=== PATIENT | male | born 1985 | race African-American/Black ===

== ENCOUNTER 2018-11-08 21:55 | Emergency (ER) | payer OTHER ==
[~2018-11-08] VITALS: Ht 182.9 cm; Wt 102.1 kg
--- NOTE | 2018-11-08 22:35 | RAD ---
PQRS Compliance statement: One or more of the following individualized dose reduction techniques were utilized for this examination: 1. Automated exposure control. 2. Adjustment of the mA and/or kV according to patient size. 3. Use of iterative reconstruction technique. Indication:Fall. TECHNIQUE: CT head without IV contrast COMPARISON: None FINDINGS: No pathologic extra-axial or intra-axial fluid collection. No acute intracranial bleed. The ventricles and basal cisterns are within normal limits. Mild left frontal scalp hematoma. Orbits are within normal limits. Right anterolateral frontal deep scalp laceration. No acute calvarial fractures. The paranasal sinuses and mastoid air cells are clear. IMPRESSION: 1. No acute intracranial bleed or calvarial fracture. 2. Right anterolateral frontal deep scalp laceration and small left anterior frontal scalp hematoma. Indication:Fall. TECHNIQUE: CT of the cervical spine without IV contrast with multiplanar reformats. COMPARISON:None FINDINGS: Cervical spine is in normal anatomic alignment. Atlantoaxial joint interval is preserved. No compression deformity. Facet joints are in normal anatomic alignment. No acute fractures. Noncontrast appearance of the neck soft tissue is within normal limits. Visualized lung apices are clear. IMPRESSION: No acute fractures. Electronically signed by: Tesfaye Acevedo DO (11/08/2018 10:32 PM) [facility]
[2018-11-08 22:51] VITALS: BP 142/83
--- NOTE | 2018-11-08 22:54 | PHYS DOC ---
Past Medical History Past Medical History: No Pertinent History Adult General Chief Complaint Chief Complaint: MECHANICAL FALL HPI HPI Patient is a 33 year old male who brought in by EMS because of a fall and head injury. Patient is incarcerated in because of a fall from bunk bed about 5 feet high and loss of consciousness for possibly about 5 minutes with laceration and contusion of his scalp without other injuries. Patient states he does not remember his fall and denies any pain. Patient is up-to-date with tetanus imm unization. Patient agreed to have CT of the head and neck and laceration repair but does not want any more tests. Review of Systems Review of Systems Constitutional: Denies fever or chills [] Eyes: Denies change in visual acuity, redness, or eye pain [] HENT: Denies nasal congestion or sore throat [] Respiratory: Denies cough or shortness of breath [] Cardiovascular: No additional information not addressed in HPI [] GI: Denies abdominal pain, nausea, vomiting, bloody stools or diarrhea [] : Denies dysuria or hematuria [] Musculoskeletal: Denies back pain or joint pain [] Integument: Denies rash or skin lesions [] Neurologic: Denies headache, focal weakness or sensory changes [] Endocrine: Denies polyuria or polydipsia [] All other systems were reviewed and found to be within normal limits, except as documented in this note. Physical Exam Physical Exam Constitutional: Well developed, well nourished, no acute distress, non-toxic appearance. [] HENT: Normocephalic, 3 cm linear laceration of right frontal scalp and forehead with mild bleeding, 3 cm forehead contusion, bilateral external ears normal, oropharynx moist. Eyes: PERRLA, EOMI, conjunctiva normal, no discharge. [] Neck: Immobilized with c-collar by EMS Cardiovascular:Heart rate regular rhythm, no murmur [] Lungs & Thorax: Bilateral breath sounds clear to auscultation [] Abdomen: Bowel sounds normal, soft, no tenderness, no masses, no pulsatile masses. [] Skin: Warm, dry, no erythema, no rash. [] Back: No tenderness, no CVA tenderness. [] Extremities: No tenderness, no cyanosis, no clubbing, ROM intact, no edema. [] Neurologic: Alert and oriented X 3, normal motor function, normal sensory function, no focal deficits noted. [] Psychologic: Affect normal, judgement normal, mood normal. [] Current Patient Data Vital Signs Vital Signs Date Time Temp Pulse Resp B/P (MAP) Pulse Ox O2 Delivery O2 Flow Rate FiO2 11/08/18 21:55 98.6 105 16 152/79 (103) 97 Room Air 98.6 EKG EKG [] Radiology/Procedures Radiology/Procedures [facility] [address] [place] [address] IMAGING REPORT Signed PATIENT: YASH GARIBAY ACCOUNT: [id number] : 1985 LOCATION: ER AGE: 33 SEX: M EXAM STATUS: PRE ER ORD. PHYSICIAN: PAMELA RUIZ MD REASON: fall from height PROCEDURE: CT HEAD AND CERVICAL SPINE WO PQRS Compliance statement: One or more of the following individualized dose reduction techniques were utilized for this examination: 1. Automated exposure control. 2. Adjustment of the mA and/or kV according to patient size. 3. Use of iterative reconstruction technique. Indication:Fall. TECHNIQUE: CT head without IV contrast COMPARISON: None FINDINGS: No pathologic extra-axial or intra-axial fluid collection. No acute intracranial bleed. The ventricles and basal cisterns are within normal limits. Mild left frontal scalp hematoma. Orbits are within normal limits. Right anterolateral frontal deep scalp laceration. No acute calvarial fractures. The paranasal sinuses and mastoid air cells are clear. IMPRESSION: 1. No acute intracranial bleed or calvarial fracture. 2. Right anterolateral frontal deep scalp laceration and small left anterior frontal scalp hematoma. Indication:Fall. TECHNIQUE: CT of the cervical spine without IV contrast with multiplanar reformats. COMPARISON:None FINDINGS: Cervical spine is in normal anatomic alignment. Atlantoaxial joint interval is preserved. No compression deformity. Facet joints are in normal anatomic alignment. No acute fractures. Noncontrast appearance of the neck soft tissue is within normal limits. Visualized lung apices are clear. IMPRESSION: No acute fractures. Electronically signed by: Tesfaye Tinajero DO (11/08/2018 10:32 PM) [id number] DICTATED and SIGNED BY: TESFAYE TINAJERO DO DATE: 11/08/182231 Course & Med Decision Making Course & Med Decision Making Pertinent Imaging studies reviewed. (See chart for details) Evaluation of patient in ER showed 33-year-old incarcerated male patient with a fall from height and facial laceration of forehead contusion. CT head Was unremarkable and c-collar was removed. Laceration was repaired with Dermabond and Steri-Strip. Patient ambulated without problem. Patient was discharged to police custody. Patient did not want pain medication while he was in ER. Dragon Disclaimer Dragon Disclaimer This electronic medical record was generated, in whole or in part, using a voice recognition dictation system. Departure Departure Impression: Primary Impression: Concussion Additional Impressions: Head injury due to trauma Facial laceration Facial contusion Fall from height of greater than 3 feet Disposition: 01 HOME, SELF-CARE (To police custody at 2252) Condition: IMPROVED Patient Instructions: Concussion and Brain Injury, Facial or Scalp Contusion, Tissue Adhesive Wound Care Additional Instructions: Drink plenty of liquids Follow-up with your primary care physician in 3-5 days Return to ER if not getting better Take [id number] Tylenol or ibuprofen as needed for pain Thank you for visiting [facility]. We appreciate you trusting us with your care. If any additional problems come up don't hesitate to return to visit us. Please follow up with your primary care provider so they can plan additional care if needed and know about the problem that you had. If symptoms worsen come back to the Emergency Department. Any concerning symptoms that start such as chest pain, shortness of Air, weakness or numbness on one side of the body, running high fevers or any other concerning symptoms return to the ER. Laceration Repair Lac Repair Indication: Facial and forehead laceration Procedure: The patient was placed in the appropriate position and 3 cm linear laceration of right forehead and frontal area was repaired with Dermabond and Steri-Strip Total repaired wound length: 3 cm Other Items: None The patient tolerated the procedure well. Complications: None. Problem Qualifiers Primary Impression: Concussion Encounter type: subsequent encounter Loss of consciousness presence/duration: with LOC of 30 min or less Qualified Codes: S06.0X1D - Concussion with loss of consciousness of 30 minutes or less, subsequent encounter Additional Impressions: Head injury due to trauma Encounter type: initial encounter Qualified Codes: S09.90XA - Unspecified injury of head, initial encounter Facial laceration Encounter type: subsequent encounter Qualified Codes: S01.81XD - Laceration without foreign body of other part of head, subsequent encounter Facial contusion Encounter type: subsequent encounter Qualified Codes: S00.83XD - Contusion of other part of head, subsequent encounter PAMELA RUIZ MD Nov 08, 2018 22:54
== END 2018-11-08 23:00 | disposition home or self-care (01) ==
LOC: ER 21:55 → EEVIPCON 21:55 → ER 23:00
DX: S06.0X1A Concussion with loss of consciousness of 30 minutes or less, initial encounter (principal); S01.01XA Laceration without foreign body of scalp, initial encounter; S01.81XA Laceration without foreign body of other part of head, initial encounter; W17.89XA Other fall from one level to another, initial encounter; Y93.89 Activity, other specified; Y92.89 Other specified places as the place of occurrence of the external cause; Y99.8 Other external cause status
CPT/HCPCS: 12013; 70450; 72125; 99285

== ENCOUNTER 2019-12-10 12:00 | Emergency (ER) | payer OTHER ==
[~2019-12-10] VITALS: Ht 182.9 cm; Wt 102.1 kg
--- NOTE | 2019-12-10 12:07 | PHYS DOC ---
Past Medical History Past Medical History: No Pertinent History Additional Past Medical Histor: PTSD Past Surgical History: No Surgical History Smoking Status: Unknown if ever smoked Alcohol Use: None Drug Use: Other (K2) General Adult HPI: HPI: Patient is a 34 year old male who presents via EMS for altered mental status. [facility] Was found face down in his cell at 1037 this morning. Was immediately wheeled to medical bay in penitentiary where he was evaluated. Patient was given 1 mg Narcan without any relief. He was also given 5 mg of Ativan and an additional 2 mg of Ativan after witnessed seizure. Given patient's persistent altered level of consciousness, EMS was called and transported here for further evaluation. There is no known trauma. It is unknown if patient has any COVID-19 exposure. It is unknown if this is patient's first seizure. Patient's only listed medication is Zofran. History limited at this time given patient's mentation Review of Systems: Review of Systems: Review of systems unobtainable due to patient mentation Heart Score: HEART Score for Chest Pain: HEART Score for Chest Pain Response (Comments) Value History Slighlty/Non-Suspicious 0 ECG Normal 0 Age < 45 0 Total 0 Risk Factors: Risk Factors: DM, Current or recent (<one month) smoker, HTN, HLP, family history of CAD, obesity. Risk Scores: Score 0 - 3: 2.5% MACE over next 6 weeks - Discharge Home Score 4 - 6: 20.3% MACE over next 6 weeks - Admit for Clinical Observation Score 7 - 10: 72.7% MACE over next 6 weeks - Early Invasive Strategies Physical Exam: PE: Constitutional: Pt postictal. Otherwise, appears well-developed and well-nourished. HENT: Head: Normocephalic and atraumatic. Mouth/Throat: Oropharynx is clear and moist. No hematomas or lacerations or abrasions to face or scalp OP clear, no blood, no malocclusion, dentition intact Nares clear, no nasal septal hematoma TMs clear, no hemotympanum. Earplug found in left middle ear Midface stable Eyes: Conjunctivae and EOM are normal. Pupils are equal, round, and reactive to light. Neck: C-spine midline nontender, no step-offs Cardiovascular: Normal rate, regular rhythm and normal heart sounds. Pulmonary/Chest: Effort normal and breath sounds normal. No respiratory distress. He has no wheezes. CTA bilaterally Abdominal: Soft. Bowel sounds are normal. Pt exhibits no distension. There is no tenderness. Musculoskeletal: No bony tenderness to extremities, no deformities, full ROM extremities. Staple found on right nipple Chest wall stable Pelvis stable and non-tender No vertebral TTP and spine without stepoffs Neurological: Pt is alert only, not oriented to person, place or time Moving all extremities willfully, able to wiggle all fingers and toes Sensation grossly intact Skin: Skin is warm and dry. No abrasions, no lacerations Psychiatric: Behavior is appropriate for situation Nursing note and vitals reviewed. Current Patient Data: Labs: Laboratory Tests Test 12/10/19 12:20 12/10/19 13:56 White Blood Count 7.0 x10^3/uL Red Blood Count 4.06 x10^6/uL Hemoglobin 13.0 g/dL Hematocrit 38.4 % Mean Corpuscular Volume 95 fL Mean Corpuscular Hemoglobin 32 pg Mean Corpuscular Hemoglobin Concent 34 g/dL Red Cell Distribution Width 12.4 % Platelet Count 280 x10^3/uL Neutrophils (%) (Auto) 63 % Lymphocytes (%) (Auto) 28 % Monocytes (%) (Auto) 7 % Eosinophils (%) (Auto) 1 % Basophils (%) (Auto) 1 % Neutrophils # (Auto) 4.4 x10^3/uL Lymphocytes # (Auto) 1.9 x10^3/uL Monocytes # (Auto) 0.5 x10^3/uL Eosinophils # (Auto) 0.1 x10^3/uL Basophils # (Auto) 0.0 x10^3/uL Sodium Level 141 mmol/L Potassium Level 3.6 mmol/L Chloride Level 102 mmol/L Carbon Dioxide Level 25 mmol/L Anion Gap 14 Blood Urea Nitrogen 9 mg/dL Creatinine 1.4 mg/dL Estimated GFR (Cockcroft-Gault) 70.2 BUN/Creatinine Ratio 6 Glucose Level 85 mg/dL Lactic Acid Level 2.9 mmol/L Calcium Level 8.8 mg/dL Total Bilirubin 0.5 mg/dL Aspartate Amino Transf (AST/SGOT) 11 U/L Alanine Aminotransferase (ALT/SGPT) 13 U/L Alkaline Phosphatase 59 U/L Ammonia 17 mcmol/L Troponin I Quantitative 0.017 ng/mL Total Protein 6.6 g/dL Albumin 3.6 g/dL Albumin/Globulin Ratio 1.2 Urine Collection Type Void Urine Color Yellow Urine Clarity Clear Urine pH 7.0 Urine Specific [place] 1.020 Urine Protein Negative mg/dL Urine Glucose (UA) Negative mg/dL Urine Ketones (Stick) Negative mg/dL Urine Blood Negative Urine Nitrite Negative Urine Bilirubin Negative Urine Urobilinogen Dipstick 1.0 mg/dL Urine Leukocyte Esterase Small Urine RBC 0 /HPF Urine WBC 1-4 /HPF Urine Squamous Epithelial Cells None /LPF Urine Bacteria 0 /HPF Urine Mucus Slight /LPF Urine Opiates Screen Neg Urine Methadone Screen Neg Urine Barbiturates Neg Urine Phencyclidine Screen Neg Urine Amphetamine/Methamphetamine Neg Urine Benzodiazepines Screen Neg Urine Cocaine Screen Neg Urine Cannabinoids Screen Neg Urine Ethyl Alcohol Neg Current Medications Medications (Trade) Dose Ordered Sig/Karthik Route PRN Reason Start Time Stop Time Status Last Admin Dose Admin Lorazepam (Ativan Inj) 2 mg STK-MED ONCE .ROUTE 12/10/19 12:07 12/10/19 12:08 DC Lorazepam (Ativan Inj) 2 mg 1X ONCE IVP 12/10/19 12:30 12/10/19 12:31 DC 12/10/19 12:20 Sodium Chloride 1,000 ml @ 1,000 mls/hr 1X ONCE IV 12/10/19 13:30 12/10/19 14:29 DC 12/10/19 13:23 Vital Signs: Vital Signs Date Time Temp Pulse Resp B/P (MAP) Pulse Ox O2 Delivery O2 Flow Rate FiO2 12/10/19 15:30 97.9 58 14 98 97.9 12/10/19 15:13 97.6 65 17 99 97.6 12/10/19 14:58 97.6 78 17 96 97.6 12/10/19 14:43 97.6 78 16 96 97.6 12/10/19 12:59 97.6 78 16 98 97.6 12/10/19 12:48 97.6 99 20 98 97.6 12/10/19 12:00 97.6 102 16 150/86 (107) 97 Room Air 97.6 EKG: EKG: EKG obtained and interpreted by myself at 1241 hrs., normal sinus rhythm at 99 bpm, unremarkable intervals, no axis deviation, no ischemic findings, no STEMI Radiology/Procedures: Radiology/Procedures: PROCEDURE: PORTABLE CHEST 1V EXAM: CHEST ONE VIEW. HISTORY: Altered mental status. COMPARISON: None. FINDINGS: A frontal view of the chest is obtained. There are no confluent infiltrates. There is no pneumothorax or pleural effusion. The heart is not enlarged. IMPRESSION: 1. No confluent infiltrates. Electronically signed by: Nathan Sharp MD (12/10/2019 12:55 PM) [id number] DICTATED and SIGNED BY: MIRIAN SHARP MD DATE: 12/10/19 1255 PROCEDURE: CT HEAD WO CONTRAST CT HEAD INDICATION: Altered mental status COMPARISON: 11/08/2018 Exposure: One or more of the following individualized dose reduction techniques were utilized for this examination: 1. Automated exposure control 2. Adjustment of the mA and/or kV according to patient size 3. Use of iterative reconstruction technique TECHNIQUE: 5 mm contiguous axial images were obtained from the skull base to the vertex in both bone and soft tissue algorithm. FINDINGS: No abnormal attenuation within the brain parenchyma. No evidence of acute intracranial hemorrhage. No extra-axial fluid collections. No mass effect or midline shift. Ventricular size is appropriate. Basal cisterns are patent. No fractures identified.Gaines-white differentiation is preserved.Globes and orbits are within normal limits. Paranasal sinuses and mastoid air cells are clear. IMPRESSION: Unremarkable CT examination of the head without contrast, as above. Specifically, no evidence of an acute intracranial abnormality. Electronically signed by: Josue Cross MD (12/10/2019 1:54 PM) [id number] Course & Med Decision Making: Course & Med Decision Making Patient seen immediately on ED arrival. No previous visits here. Unknown past medical history. History from EMS is limited. Accompanied by penitentiary personnel Hemodynamically stable. Patent airway, no concern for compromise Seizure-like activity was noted while in ED and 2 mg of Ativan was administered with improvement in symptoms. Additional episode of seizure-like activity occurred but was abated when discussing need to catheterize patient Pertinent Labs and Imaging studies reviewed. (See chart for details) Patient monitored and reevaluated numerous times while in ED. Improvement in post ictal symptoms. Improvement in mentation. Appears back at baseline Admitted to using K2 drug within the past 48 hours. Seizure-like activity likely related to use of this. No other immediate medical concerns requiring admission at this time Patient medically clear for discharge back to correctional facility. Discussed work-up at length with patient with good understanding. Reiterated importance of following up with penitentiary PCP for ongoing care Lucretia Disclaimer: Lucretia Disclaimer: This electronic medical record was generated, in whole or in part, using a voice recognition dictation system. Departure Departure Impression: Primary Impression: Seizure Additional Impression: Drug abuse Disposition: 01 HOME, SELF-CARE (Transported back to penitentiary) Condition: RELEASED IN CUSTODY Referrals: UNKNOWN PCP NAME (PCP) Additional Instructions: As discussed prior to your ED departure, please follow-up with your physician in penitentiary Justicifation of Admission Dx: Justifications for Admission: Justification of Admission Dx: N/A VIJAY HARRIS DO Dec 10, 2019 12:07
[2019-12-10] MEDS ORDERED: AMMONIA AROMATIC 15% INHALANT AMPUL. ONE (12:30)
[2019-12-10 12:37] LABS: BASO % 1 % (0-3); EOS # 0.1 x10^3/uL (0.0-0.7); EOS % 1 % (0-3); HEMATOCRIT 38.4 % (39.0-53.0); LYMPH # 1.9 x10^3/uL (1.0-4.8); LYMPH % 28 % (24-48); MEAN CORPUSCULAR HEMOGLOBIN 32 pg (25-35); MEAN CORPUSCULAR HGB CONC 34 g/dL (31-37); MEAN CORPUSCULAR VOLUME 95 fL (79-100); MONO # 0.5 x10^3/uL (0.0-1.1); MONO % 7 % (0-9); NEUT # 4.4 x10^3/uL (1.8-7.7); NEUT % 63 % (31-73); RED BLOOD COUNT 4.06 x10^6/uL (4.30-5.70); RED CELL DISTRIBUTION WIDTH 12.4 % (11.5-14.5)
[2019-12-10 12:41] LABS: CALCIUM 8.8 mg/dL (8.5-10.1); CREATININE 1.4 mg/dL (0.7-1.3); GFR 70.2; POTASSIUM 3.6 mmol/L (3.5-5.1)
[2019-12-10 12:47] LABS: ALBUMIN 3.6 g/dL (3.4-5.0); ALBUMIN/GLOBULIN RATIO 1.2 (1.0-1.7); TOTAL BILIRUBIN 0.5 mg/dL (0.2-1.0); TOTAL PROTEIN 6.6 g/dL (6.4-8.2)
--- NOTE | 2019-12-10 12:58 | RAD ---
EXAM: CHEST ONE VIEW. HISTORY: Altered mental status. COMPARISON: None. FINDINGS: A frontal view of the chest is obtained. There are no confluent infiltrates. There is no pneumothorax or pleural effusion. The heart is not enlarged. IMPRESSION: 1. No confluent infiltrates. Electronically signed by: Nathan Sharp MD (12/10/2019 12:55 PM) [id number]
[2019-12-10 13:01] LABS: PLATELET COUNT 280 x10^3/uL (140-400)
[2019-12-10] MEDS ORDERED: IV NORMAL SALINE 1000ML BAG 1,000 ML IV ONE (13:30)
--- NOTE | 2019-12-10 13:57 | RAD ---
CT HEAD INDICATION: Altered mental status COMPARISON: 11/08/2018 Exposure: One or more of the following individualized dose reduction techniques were utilized for this examination: 1. Automated exposure control 2. Adjustment of the mA and/or kV according to patient size 3. Use of iterative reconstruction technique TECHNIQUE: 5 mm contiguous axial images were obtained from the skull base to the vertex in both bone and soft tissue algorithm. FINDINGS: No abnormal attenuation within the brain parenchyma. No evidence of acute intracranial hemorrhage. No extra-axial fluid collections. No mass effect or midline shift. Ventricular size is appropriate. Basal cisterns are patent. No fractures identified.Gaines-white differentiation is preserved.Globes and orbits are within normal limits. Paranasal sinuses and mastoid air cells are clear. IMPRESSION: Unremarkable CT examination of the head without contrast, as above. Specifically, no evidence of an acute intracranial abnormality. Electronically signed by: Josue Cross MD (12/10/2019 1:54 PM) [id number]
[2019-12-10 14:10] LABS: BILIRUBIN,URINE NEGATIVE (NEG); CLARITY,URINE CLEAR; COLOR,URINE YELLOW; NITRITE,URINE NEGATIVE (NEG); PROTEIN,URINE NEGATIVE (NEG-TRACE)
[2019-12-10 14:14] LABS: BARBITURATES NEG (NEG); BENZODIAZEPINES NEG (NEG); CANNABINOIDS NEG (NEG); COCAINE NEG (NEG); METHADONE NEG (NEG); OPIATES NEG (NEG); PHENCYCLIDINE NEG (NEG)
[2019-12-10 14:17] LABS: AMPHETAMINE/METHAMPHETAMINE NEG (NEG)
[2019-12-10 14:19] LABS: BACTERIA,URINE 0 /HPF (0-FEW); RBC,URINE 0 /HPF (0-2)
[2019-12-10 15:30] VITALS: BP 115/58
--- NOTE | 2019-12-13 03:13 | EKG ---
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
== END 2019-12-10 15:46 | disposition home or self-care (01) ==
LOC: ER 12:00 → EEVIPCON 12:00 → ER 15:46
DX: R56.9 Unspecified convulsions (principal); F12.10 Cannabis abuse, uncomplicated; R41.82 Altered mental status, unspecified; F43.10 Post-traumatic stress disorder, unspecified
CPT/HCPCS: 36415; 70450; 71045; 80053; 80307; 81001; 82140; 83605; 84484; 85025; 87086; 96361; 96374; 99285; J2060; J7030; 93005

== ENCOUNTER 2019-12-11 06:03 | Emergency (ER) | payer OTHER ==
[~2019-12-11] VITALS: Ht 175.3 cm; Wt 77.0 kg
[2019-12-11] MEDS ORDERED: IV NORMAL SALINE 1000ML BAG 1,000 ML IV ONE (06:15)
[2019-12-11 07:07] LABS: BASO % 1 % (0-3); EOS # 0.1 x10^3/uL (0.0-0.7); EOS % 1 % (0-3); HEMATOCRIT 38.1 % (39.0-53.0); HEMOGLOBIN 13.1 g/dL (13.0-17.5); LYMPH # 1.4 x10^3/uL (1.0-4.8); LYMPH % 22 % (24-48); MEAN CORPUSCULAR HEMOGLOBIN 32 pg (25-35); MEAN CORPUSCULAR HGB CONC 34 g/dL (31-37); MEAN CORPUSCULAR VOLUME 94 fL (79-100); MONO # 0.5 x10^3/uL (0.0-1.1); MONO % 8 % (0-9); NEUT # 4.3 x10^3/uL (1.8-7.7); NEUT % 69 % (31-73); PLATELET COUNT 336 x10^3/uL (140-400); RED BLOOD COUNT 4.05 x10^6/uL (4.30-5.70); RED CELL DISTRIBUTION WIDTH 12.6 % (11.5-14.5); WHITE BLOOD COUNT 6.3 x10^3/uL (4.0-11.0)
[2019-12-11 07:15] VITALS: BP 120/56
[2019-12-11 07:16] LABS: PROTHROMBIN TIME PATIENT 14.8 SEC (11.7-14.0)
[2019-12-11 07:20] LABS: CALCIUM 8.7 mg/dL (8.5-10.1); CREATININE 1.2 mg/dL (0.7-1.3); GFR 83.9; POTASSIUM 3.9 mmol/L (3.5-5.1)
[2019-12-11 07:27] LABS: ALBUMIN 3.4 g/dL (3.4-5.0); ALBUMIN/GLOBULIN RATIO 1.1 (1.0-1.7); TOTAL BILIRUBIN 0.5 mg/dL (0.2-1.0); TOTAL PROTEIN 6.6 g/dL (6.4-8.2)
[2019-12-11 08:19] LABS: BARBITURATES NEG (NEG); BENZODIAZEPINES NEG (NEG); CANNABINOIDS NEG (NEG); COCAINE NEG (NEG); METHADONE NEG (NEG); OPIATES NEG (NEG); PHENCYCLIDINE NEG (NEG)
[2019-12-11 08:21] LABS: AMPHETAMINE/METHAMPHETAMINE NEG (NEG)
--- NOTE | 2019-12-11 08:29 | PHYS DOC ---
Past Medical History Past Medical History: Unknown Additional Past Medical Histor: PTSD Past Surgical History: No Surgical History Additional Past Surgical Histo: unknown Smoking Status: Unknown if ever smoked Alcohol Use: None Drug Use: Other Social History Narrative: UNKNOWN General Adult EDM: Chief Complaint: SEIZURE HPI: HPI: Patient is a 34 year old male who was brought here by EMS from [facility] for report of seizure activity. It was reported that patient been shaking and twisted his muscle for the last hour while he was in his alf cell patient was brought to the medical station there when he was seen by the RN there who gave him Ativan injection. Patient was evaluated here yesterday for the same problem. There was no history of seizure disorder. Review of Systems: Review of Systems: Constitutional: Denies fever or chills. [] Eyes: Denies change in visual acuity. [] HENT: Denies nasal congestion or sore throat. [] Respiratory: Denies cough or shortness of breath. [] Cardiovascular: Denies chest pain or edema. [] GI: Denies abdominal pain, nausea, vomiting, bloody stools or diarrhea. [] : Denies dysuria. [] Musculoskeletal: Denies back pain or joint pain. [] Integument: Denies rash. [] Neurologic: Denies headache, focal weakness or sensory changes. Positive for muscle twisting and shaking. Endocrine: Denies polyuria or polydipsia. [] Lymphatic: Denies swollen glands. [] Psychiatric: Denies depression or anxiety. [] Heart Score: Risk Factors: Risk Factors: DM, Current or recent (<one month) smoker, HTN, HLP, family history of CAD, obesity. Risk Scores: Score 0 - 3: 2.5% MACE over next 6 weeks - Discharge Home Score 4 - 6: 20.3% MACE over next 6 weeks - Admit for Clinical Observation Score 7 - 10: 72.7% MACE over next 6 weeks - Early Invasive Strategies Current Medications: Current Medications Medications (Trade) Dose Ordered Sig/Karthik Start Time Stop Time Status Last Admin Dose Admin Sodium Chloride 1,000 ml @ 1,000 mls/hr 1X ONCE 12/11/19 06:15 12/11/19 07:14 DC 12/11/19 06:45 1,000 MLS/HR Allergies: Allergies: Allergies Coded Allergies Type Severity Reaction Last Updated Verified No Known Drug Allergies 12/10/19 No Physical Exam: PE: Constitutional: Well developed, well nourished, no acute distress, non-toxic appearance. [] HENT: Normocephalic, atraumatic, bilateral external ears normal, oropharynx moist, no oral exudates, nose normal. [] Eyes: PERRLA, EOMI, conjunctiva normal, no discharge. [] Neck: Normal range of motion, no tenderness, supple, no stridor. [] Cardiovascular:Heart rate regular rhythm, no murmur [] Lungs & Thorax: Bilateral breath sounds clear to auscultation [] Abdomen: Bowel sounds normal, soft, no tenderness, no masses, no pulsatile masses. [] Skin: Warm, dry, no erythema, no rash. [] Back: No tenderness, no CVA tenderness. [] Extremities: No tenderness, no cyanosis, no clubbing, ROM intact, no edema. [] Neurologic: Alert and oriented X 3, normal motor function, normal sensory function, no focal deficits noted. [] Psychologic: Affect normal, judgement normal, mood normal. [] Current Patient Data: Labs: Laboratory Tests Test 12/11/19 06:56 12/11/19 08:01 White Blood Count 6.3 x10^3/uL (4.0-11.0) Red Blood Count 4.05 x10^6/uL (4.30-5.70) L Hemoglobin 13.1 g/dL (13.0-17.5) Hematocrit 38.1 % (39.0-53.0) L Mean Corpuscular Volume 94 fL (79-100) Mean Corpuscular Hemoglobin 32 pg (25-35) Mean Corpuscular Hemoglobin Concent 34 g/dL (31-37) Red Cell Distribution Width 12.6 % (11.5-14.5) Platelet Count 336 x10^3/uL (140-400) Neutrophils (%) (Auto) 69 % (31-73) Lymphocytes (%) (Auto) 22 % (24-48) L Monocytes (%) (Auto) 8 % (0-9) Eosinophils (%) (Auto) 1 % (0-3) Basophils (%) (Auto) 1 % (0-3) Neutrophils # (Auto) 4.3 x10^3/uL (1.8-7.7) Lymphocytes # (Auto) 1.4 x10^3/uL (1.0-4.8) Monocytes # (Auto) 0.5 x10^3/uL (0.0-1.1) Eosinophils # (Auto) 0.1 x10^3/uL (0.0-0.7) Basophils # (Auto) 0.0 x10^3/uL (0.0-0.2) Prothrombin Time 14.8 SEC (11.7-14.0) H Prothrombin Time INR 1.2 (0.8-1.1) H Activated Partial Thromboplast Time 31 SEC (24-38) Sodium Level 140 mmol/L (136-145) Potassium Level 3.9 mmol/L (3.5-5.1) Chloride Level 106 mmol/L (98-107) Carbon Dioxide Level 27 mmol/L (21-32) Anion Gap 7 (6-14) Blood Urea Nitrogen 9 mg/dL (8-26) Creatinine 1.2 mg/dL (0.7-1.3) Estimated GFR (Cockcroft-Gault) 83.9 BUN/Creatinine Ratio 8 (6-20) Glucose Level 95 mg/dL (70-99) Calcium Level 8.7 mg/dL (8.5-10.1) Total Bilirubin 0.5 mg/dL (0.2-1.0) Aspartate Amino Transferase (AST) 14 U/L (15-37) L Alanine Aminotransferase (ALT) 19 U/L (16-63) Alkaline Phosphatase 57 U/L (46-116) Creatine Kinase 562 U/L (39-308) H Troponin I Quantitative < 0.017 ng/mL (0.000-0.055) Total Protein 6.6 g/dL (6.4-8.2) Albumin 3.4 g/dL (3.4-5.0) Albumin/Globulin Ratio 1.1 (1.0-1.7) Urine Opiates Screen Neg (NEG) Urine Methadone Screen Neg (NEG) Urine Barbiturates Neg (NEG) Urine Phencyclidine Screen Neg (NEG) Urine Amphetamine/Methamphetamine Neg (NEG) Urine Benzodiazepines Screen Neg (NEG) Urine Cocaine Screen Neg (NEG) Urine Cannabinoids Screen Neg (NEG) Urine Ethyl Alcohol Neg (NEG) Laboratory Tests 12/11/19 06:56 Laboratory Tests 12/11/19 06:56 Vital Signs: Vital Signs Date Time Temp Pulse Resp B/P (MAP) Pulse Ox O2 Delivery O2 Flow Rate FiO2 12/11/19 06:09 99.1 114 18 120/61 (80) 97 Room Air 99.1 EKG: EKG: [] Radiology/Procedures: Radiology/Procedures: [] Course & Med Decision Making: Course & Med Decision Making Pertinent Labs and Imaging studies reviewed. (See chart for details) Patient is a 34-year-old inmate from [facility], who was brought here for evaluation due to what was said to be seizure activity, patient had several episodes of shaking and twisting of extremities and chest muscle while he was awake and talking. This is clearly not seizure activity. He does not need to have any emergent diagnostic study or evaluation. Patient clearly does not need antiseizure medication. Patient was discharged back to the [facility] in the custody of the security guards there Dragluis Disclaimer: Lucretia Disclaimer: This electronic medical record was generated, in whole or in part, using a voice recognition dictation system. Departure Departure Impression: Primary Impression: Convulsions Additional Impression: Tremor Disposition: HOME, SELF-CARE Condition: STABLE Referrals: NO PCP (PCP) JOSESITO PELAEZ MD Patient Instructions: Tremor Additional Instructions: Please call the neurologist above for outpatient for follow up next week. Justicifation of Admission Dx: Justifications for Admission: Justification of Admission Dx: N/A VIN HILL DO Dec 11, 2019 08:29
--- NOTE | 2019-12-13 11:36 | EKG ---
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
== END 2019-12-11 09:06 | disposition home or self-care (01) ==
LOC: ER 06:03 → EEVIPCON 06:03 → ER 09:06
DX: R56.9 Unspecified convulsions (principal); R25.1 Tremor, unspecified; F43.12 Post-traumatic stress disorder, chronic; F19.90 Other psychoactive substance use, unspecified, uncomplicated
CPT/HCPCS: 36415; 80053; 80307; 82550; 84484; 85025; 85610; 85730; 93005; 99284; J7030